=== PATIENT | female | born 1955 | race Caucasian/White ===

== ENCOUNTER 2022-07-28 07:36 | Emergency (ER) | payer BC ==
[~2022-07-28] VITALS: Ht 167.6 cm; Wt 77.6 kg
--- NOTE | 2022-07-28 07:48 | NUR ---
Patient AOx4 able to express her concerns. MD at bedside explaining plan of care, patient verbalized agreement. Patients questions and concerns answerd. VSS, no signs of ditress. Will continue to provide care as needed.
--- NOTE | 2022-07-28 07:58 | NUR ---
Patient tolerated procedure well, MD explained aftercare and answer post-care questions. All safety precautions taken.
--- NOTE | 2022-07-28 08:05 | NUR ---
Lease Administrator at bedside, patient refused IV and blood draw.
--- NOTE | 2022-07-28 08:10 | NUR ---
Patient refused vital sign assessment.
[2022-07-28 08:40] VITALS: BP 118/97
== END 2022-07-28 08:41 | disposition home or self-care (01) ==
LOC: ER 07:44
DX: R04.0 Epistaxis (principal); I10 Essential (primary) hypertension; E78.5 Hyperlipidemia, unspecified; M54.50 Low back pain, unspecified; G89.29 Other chronic pain
CPT/HCPCS: 99284; 30905; A6403; A4217